=== PATIENT | male | born 1940 | race Caucasian/White ===

== ENCOUNTER 2021-02-21 23:57 | Emergency (ER) | payer MEDICARE ==
[~2021-02-21] VITALS: Ht 175.3 cm; Wt 95.2 kg
[2021-02-22 00:54] LABS: BASOPHILS ABSOLUTE AUTO 0.04 K/mm3 (0.00-0.23); BASOPHILS PERCENT AUTO 1 % (0-2); EOSINOPHILS ABSOLUTE AUTO 0.22 K/mm3 (0.00-0.68); EOSINOPHILS PERCENT AUTO 3 % (0-6); Hematocrit 43.9 % (37.0-53.0); Hemoglobin 14.2 g/dL (13.5-17.5); IMMATURE GRAN ABSOLUTE AUTO 0.03 K/mm3 (0.00-0.10); IMMATURE GRAN PERCENT AUTO 0 % (0-1); LYMPHOCYTES PERCENT AUTO 26 % (21-46); MONOCYTES PERCENT AUTO 10 % (4-13); Mean Corpuscular HGB 28.6 pg (26.0-34.0); Mean Corpuscular HGB Conc 32.3 g/dL (31.5-36.5); Mean Corpuscular Volume 89 fL (80-100); Mean Platelet Volume 9.1 fL (9.1-12.4); NEUTROPHILS ABSOLUTE AUTO 5.07 K/mm3 (1.96-9.15); NEUTROPHILS PERCENT AUTO 61 % (41-73); Platelet Count 239 K/mm3 (150-400); RDW Coefficient Variation 13.4 % (11.7-14.2); RDW Standard Deviation 43.7 fL (35.1-46.3); Red Blood Cell Count 4.96 M/mm3 (4.30-5.90); White Blood Cell Count 8.36 K/mm3 (4.00-11.30)
[2021-02-22 01:12] LABS: Albumin, Blood 2.8 g/dL (3.4-5.0); Albumin/Globulin Ratio 0.6 (0.8-1.8); Bilirubin, Total 0.4 mg/dL (0.1-1.0); Bun/Creatinine Ratio 17.6 (12.0-20.0); Calcium, Blood 8.7 mg/dL (8.5-10.1); Creatinine, Blood 1.25 mg/dL (0.60-1.20); Globulin, Blood 4.4 g/dL (2.2-4.0); Potassium, Blood 4.3 mmol/L (3.5-5.5); Total Protein, Blood 7.2 g/dL (6.4-8.2)
[2021-02-22] MEDS ORDERED: DOXYCYCLINE HY100 M1 PO (03:55)
[2021-02-22] MEDS ORDERED: ATEN50 PO (03:55)
[2021-02-22] MEDS ORDERED: Indomethacin25 MG PO (03:56)
== END 2021-02-22 04:49 | disposition home or self-care (01) ==
LOC: ER 23:57
PROVIDERS: Physician Assistant
DX: L03.115 Cellulitis of right lower limb (principal); Z87.891 Personal history of nicotine dependence
CPT/HCPCS: 80053; 83605; 85025; 99283

== ENCOUNTER 2022-08-17 11:10 | Inpatient (IN) | payer MEDICARE ==
[~2022-08-17] VITALS: Ht 175.3 cm; Wt 93.0 kg
[~2022-08-17 11:10] MED LIST: ATEN50 PO; DOXYCYCLINE HY100 M1 PO; Indomethacin25 MG PO
[2022-08-17 11:52] LABS: BASOPHILS ABSOLUTE AUTO 0.01 K/mm3 (0.00-0.23); BASOPHILS PERCENT AUTO 0 % (0-2); EOSINOPHILS ABSOLUTE AUTO 0.04 K/mm3 (0.00-0.68); EOSINOPHILS PERCENT AUTO 0 % (0-6); Hematocrit 41.9 % (37.0-53.0); Hemoglobin 14.2 g/dL (13.5-17.5); IMMATURE GRAN ABSOLUTE AUTO 0.04 K/mm3 (0.00-0.10); IMMATURE GRAN PERCENT AUTO 0 % (0-1); LYMPHOCYTES ABSOLUTE AUTO 0.84 K/mm3 (0.84-5.20); LYMPHOCYTES PERCENT AUTO 7 % (21-46); MONOCYTES ABSOLUTE AUTO 0.75 K/mm3 (0.16-1.47); MONOCYTES PERCENT AUTO 6 % (4-13); Mean Corpuscular HGB 29.7 pg (26.0-34.0); Mean Corpuscular HGB Conc 33.9 g/dL (31.5-36.5); Mean Corpuscular Volume 88 fL (80-100); Mean Platelet Volume 9.4 fL (9.1-12.4); NEUTROPHILS ABSOLUTE AUTO 10.54 K/mm3 (1.96-9.15); NEUTROPHILS PERCENT AUTO 86 % (41-73); Platelet Count 183 K/mm3 (150-400); RDW Coefficient Variation 13.4 % (11.7-14.2); RDW Standard Deviation 43.6 fL (35.1-46.3); Red Blood Cell Count 4.78 M/mm3 (4.30-5.90); White Blood Cell Count 12.22 K/mm3 (4.00-11.30)
[2022-08-17 12:13] LABS: Albumin, Blood 2.4 g/dL (3.4-5.0); Albumin/Globulin Ratio 0.5 (0.8-1.8); Bilirubin, Total 0.7 mg/dL (0.1-1.0); Bun/Creatinine Ratio 18.5 (12.0-20.0); Calcium, Blood 8.7 mg/dL (8.5-10.1); Creatinine, Blood 1.51 mg/dL (0.60-1.20); Globulin, Blood 4.6 g/dL (2.2-4.0); Potassium, Blood 3.8 mmol/L (3.5-5.5)
[2022-08-17] MEDS ORDERED: CEPH500 PO (12:50)
[2022-08-17] MEDS ORDERED: ASPI81CH PO (12:53)
[2022-08-17] MEDS ORDERED: Doxycycline Mo100 M1 PO (14:57)
--- NOTE | 2022-08-17 18:00 | NUR ---
SHIFT SUMMARY PT A&OX4 AND IN PLEASENT MOOD SINCE ARRIVAL FROM ER. AT BEDSIDE. TOLERATING PO INTAKE. RLE RED SWOLLEN-OUTLINED AND PHOTO ON CHART. UP W/ 1X ASSIST AND FWW DUE TO PAIN. CALL LIGHT W/IN REACH. VSS. TELE IN PLACE. PLAN FOR IV ABX.
[2022-08-18 04:16] LABS: BASOPHILS ABSOLUTE AUTO 0.03 K/mm3 (0.00-0.23); BASOPHILS PERCENT AUTO 0 % (0-2); EOSINOPHILS ABSOLUTE AUTO 0.04 K/mm3 (0.00-0.68); EOSINOPHILS PERCENT AUTO 0 % (0-6); Hematocrit 39.6 % (37.0-53.0); Hemoglobin 13.2 g/dL (13.5-17.5); IMMATURE GRAN ABSOLUTE AUTO 0.04 K/mm3 (0.00-0.10); IMMATURE GRAN PERCENT AUTO 0 % (0-1); LYMPHOCYTES ABSOLUTE AUTO 1.16 K/mm3 (0.84-5.20); LYMPHOCYTES PERCENT AUTO 11 % (21-46); MONOCYTES ABSOLUTE AUTO 1.12 K/mm3 (0.16-1.47); MONOCYTES PERCENT AUTO 10 % (4-13); Mean Corpuscular HGB 29.2 pg (26.0-34.0); Mean Corpuscular HGB Conc 33.3 g/dL (31.5-36.5); Mean Corpuscular Volume 88 fL (80-100); NEUTROPHILS ABSOLUTE AUTO 8.67 K/mm3 (1.96-9.15); NEUTROPHILS PERCENT AUTO 78 % (41-73); Platelet Count 181 K/mm3 (150-400); RDW Coefficient Variation 13.3 % (11.7-14.2); RDW Standard Deviation 43.2 fL (35.1-46.3); Red Blood Cell Count 4.52 M/mm3 (4.30-5.90); White Blood Cell Count 11.06 K/mm3 (4.00-11.30)
--- NOTE | 2022-08-18 04:27 | NUR ---
SHIFT SUMMARY NO OVERNIGHT EVENTS. PT RLE RED, SWOLLEN, WARM, INTACT. REDNESS OUTLINED BY PREVIOUS SHIFT. PT STATES FOOT IS VERY TENDER TO TOUCH AND PAINFUL. ADMINISTERED X1 PRN FENTANYL AND TYLENOL. APPLIED ICE PACKS. LEGS ELEVATED. PT BP SLIGHTLY ELEVATED. AMBULATING SBA FWW TO BATHROOM. CONINUES IV ABX. PT INQUIRING ABOUT COSTS OF HOSPITAL STAY, PLACED CARE MANAGMENT ORDER FOR FINANCIAL ASSISTANCE. PT ABLE TO MAKE NEEDS KNOWN, CALL LIGHT IN REACH.
[2022-08-18 04:41] LABS: Albumin, Blood 2.1 g/dL (3.4-5.0); Albumin/Globulin Ratio 0.5 (0.8-1.8); Bilirubin, Total 0.6 mg/dL (0.1-1.0); Bun/Creatinine Ratio 16.3 (12.0-20.0); Calcium, Blood 8.3 mg/dL (8.5-10.1); Creatinine, Blood 1.29 mg/dL (0.60-1.20); Potassium, Blood 3.6 mmol/L (3.5-5.5); Total Protein, Blood 6.1 g/dL (6.4-8.2)
--- NOTE | 2022-08-18 17:17 | NUR ---
SHIFT SUMMARY NO ACUTE CHANGES DURING SHIFT. PT ALERT AND ORIENTED, CALLS APPROPRIATELY. RLE REMAINS SWOLLEN, RED, ELEVATED WHILE IN BED. IV LASIX STARTED TODAY. PT REMAINS ON RA. PT SBA WITH FWW TO BATHROOM. CONTINUE IV ABX. ATTEMPTED TO APPLY COMPRESSION STOCKING TO RLE TODAY, PT DID NOT TOLERATE, DR REA NOTIFIED. PRN PAIN MEDICATION ADMINISTERED X 2 TODAY, EFFECTIVE. WILL CONTINUE TO MONITOR. CALL LIGHT WITHIN REACH.
--- NOTE | 2022-08-19 03:46 | NUR ---
SHIFT SUMMARY NOC PT A/O X 4. NO ACUTE CHANGES TO REPORT. PT HAD C/O OF PAIN IN RLE WHICH IS STILL SWOLLEN, RED, AND IS ELEVATED ON PILLOW. PT WAS MEDICATED PER EMAR FOR PAIN X 2. PT ON TELE RUNNING SINUS DENIS @ 55 BPM. PT PLEASANT AND COOPERATIVE WITH CARE. PT IS CURRENTLY RESTING WITH BED IN LOWEST POSITION, AND CALL LIGHTE WITHIN REACH. TM.
[2022-08-19 05:18] LABS: BASOPHILS ABSOLUTE AUTO 0.02 K/mm3 (0.00-0.23); BASOPHILS PERCENT AUTO 0 % (0-2); EOSINOPHILS ABSOLUTE AUTO 0.06 K/mm3 (0.00-0.68); EOSINOPHILS PERCENT AUTO 1 % (0-6); Hematocrit 38.6 % (37.0-53.0); IMMATURE GRAN ABSOLUTE AUTO 0.05 K/mm3 (0.00-0.10); IMMATURE GRAN PERCENT AUTO 1 % (0-1); LYMPHOCYTES ABSOLUTE AUTO 1.44 K/mm3 (0.84-5.20); LYMPHOCYTES PERCENT AUTO 13 % (21-46); MONOCYTES PERCENT AUTO 8 % (4-13); Mean Corpuscular HGB 29.2 pg (26.0-34.0); Mean Corpuscular HGB Conc 33.7 g/dL (31.5-36.5); Mean Corpuscular Volume 87 fL (80-100); Mean Platelet Volume 9.1 fL (9.1-12.4); NEUTROPHILS ABSOLUTE AUTO 8.62 K/mm3 (1.96-9.15); NEUTROPHILS PERCENT AUTO 78 % (41-73); Platelet Count 203 K/mm3 (150-400); RDW Coefficient Variation 13.4 % (11.7-14.2); RDW Standard Deviation 42.3 fL (35.1-46.3); Red Blood Cell Count 4.45 M/mm3 (4.30-5.90); White Blood Cell Count 11.09 K/mm3 (4.00-11.30)
[2022-08-19 05:47] LABS: Bun/Creatinine Ratio 16.4 (12.0-20.0); Calcium, Blood 8.5 mg/dL (8.5-10.1); Creatinine, Blood 1.34 mg/dL (0.60-1.20); Potassium, Blood 3.3 mmol/L (3.5-5.5)
--- NOTE | 2022-08-19 18:30 | NUR ---
SHIFT SUMMARY NO ACUTE CHANGES DURING SHIFT. PT ALERT AND ORIENTED, CALLS APPROPRIATELY. PT REMAINS ON RA. PT SBA WITH FWW TO BATHROOM. DECREASE IN SWELLING NOTED TO RLE. PT MEDICATED X 2 WITH PRN MEDICATIONS FOR PAIN TODAY, EFFECTIVE. CONTINUE IV ABX. WILL CONTINUE TO MONITOR. CALL LIGHT WITHIN REACH.
[2022-08-20 05:06] LABS: BASOPHILS ABSOLUTE AUTO 0.03 K/mm3 (0.00-0.23); BASOPHILS PERCENT AUTO 0 % (0-2); EOSINOPHILS PERCENT AUTO 1 % (0-6); Hematocrit 38.4 % (37.0-53.0); IMMATURE GRAN ABSOLUTE AUTO 0.07 K/mm3 (0.00-0.10); IMMATURE GRAN PERCENT AUTO 1 % (0-1); LYMPHOCYTES ABSOLUTE AUTO 1.59 K/mm3 (0.84-5.20); LYMPHOCYTES PERCENT AUTO 16 % (21-46); MONOCYTES ABSOLUTE AUTO 0.85 K/mm3 (0.16-1.47); MONOCYTES PERCENT AUTO 8 % (4-13); Mean Corpuscular HGB 29.2 pg (26.0-34.0); Mean Corpuscular HGB Conc 33.9 g/dL (31.5-36.5); Mean Corpuscular Volume 86 fL (80-100); Mean Platelet Volume 8.8 fL (9.1-12.4); NEUTROPHILS ABSOLUTE AUTO 7.53 K/mm3 (1.96-9.15); NEUTROPHILS PERCENT AUTO 74 % (41-73); Platelet Count 224 K/mm3 (150-400); RDW Coefficient Variation 13.3 % (11.7-14.2); RDW Standard Deviation 41.7 fL (35.1-46.3); Red Blood Cell Count 4.45 M/mm3 (4.30-5.90); White Blood Cell Count 10.17 K/mm3 (4.00-11.30)
[2022-08-20 05:34] LABS: Bun/Creatinine Ratio 19.8 (12.0-20.0); Calcium, Blood 8.5 mg/dL (8.5-10.1); Creatinine, Blood 1.26 mg/dL (0.60-1.20); Potassium, Blood 3.6 mmol/L (3.5-5.5)
--- NOTE | 2022-08-20 07:15 | NUR ---
LADLE REPAIRMAN SUMMARY: A&Ox4. PLEASANT AND COOPERATIVE WITH CARE. CALLS APPROPRIATELY AND IS ABLE TO COMMUNICATE NEEDS EFFECTIVELY. RLE PAINFUL; ERYTHEMATOUS AND EDEMATOUS WITH AREA OUTLINED IN MARKER. MAY BE SPREADING TO LEFT KNEE; HE REPORTS FEELING LIKE RIGHT KNEE LOCKING UP. ALTERNATING PRN APAP AND FENTANYL. IV LAC LEAKING AND PAINFUL; REMOVED AND NEW 22G PLACED IN RFA. LABS COLLECTED THIS AM; NO CRITICAL VALUES REPORTED AT THIS TIME. WILL REPORT TO ONCOMING RN.
--- NOTE | 2022-08-20 15:03 | NUR ---
RESUMED CARE OF PT AT 1430. CALL LIGHT WITHIN REACH AND BED IN THE LOWEST POSITION.
[2022-08-20 15:29] LABS: Vancomycin, Trough 6.6 ug/mL (5.0-10.0)
--- NOTE | 2022-08-20 17:29 | NUR ---
SHIFT SUMMARY SINCE RESUMING PT'S CARE, NO REMARKABLE EVENTS HAVE OCCURRED. HE IS RESTING IN BED WITH HIS , WATCHING TELEVISION. HE HAS HAD NO C/O N/V/CP. HE HOPES TO GO HOME TOMORROW. HE IS A IP WITH A FWW TRANSFER, PER REPORT. HE DID C/O R LEG PAIN AND MEDICATED PER THE EMAR. WILL REPORT TO ONCOMING NURSE.
[2022-08-21 05:49] LABS: Bun/Creatinine Ratio 20.7 (12.0-20.0); Calcium, Blood 8.5 mg/dL (8.5-10.1); Creatinine, Blood 1.21 mg/dL (0.60-1.20); Potassium, Blood 3.5 mmol/L (3.5-5.5)
--- NOTE | 2022-08-21 07:28 | NUR ---
JOURNALISTS AND OTHER WRITERS SUMMARY: A&Ox4. PLEASANT AND COOPERATIVE WITH CARE. CALLS APPROPRIATELY AND IS ABLE TO COMMUNICATE NEEDS EFFECTIVELY. PAIN IN RLE IMPROVING; PRN APAP q6h ONLY AND HAS SINCE STOPPED FENTANYL. DOING WELL WITH ADDITION OF VANCO. NO ACUTE CONCERNS T/O THE NIGHT. LABS DRAWN THIS AM; NO CRITICAL VALUES REPORTED AT THIS TIME. REPORT TO ONCOMING RN.
[2022-08-21] MEDS ORDERED: SULTRIDS PO (10:57)
[2022-08-21] MEDS ORDERED: VISBIOME 112.51 EACH PO (10:58)
== END 2022-08-21 11:45 | disposition home or self-care (01) | DRG 872 ==
LOC: ER 11:10 → MEDS 13:44
PROVIDERS: Emergency Medicine; Internal Medicine; ADMIT Internal Medicine
DX: A41.9 Sepsis, unspecified organism (principal); L03.115 Cellulitis of right lower limb; N17.9 Acute kidney failure, unspecified; E87.20 Acidosis, unspecified; I12.9 Hypertensive chronic kidney disease with stage 1 through stage 4 chronic kidney disease, or unspecified chronic kidney disease; N18.30 Chronic kidney disease, stage 3 unspecified; R65.20 Severe sepsis without septic shock; E88.09 Other disorders of plasma-protein metabolism, not elsewhere classified; M10.9 Gout, unspecified; Z79.82 Long term (current) use of aspirin; Z79.899 Other long term (current) drug therapy; Z79.2 Long term (current) use of antibiotics; Z87.891 Personal history of nicotine dependence
CPT/HCPCS: 36415; 80048; 80053; 80202; 83605; 83880; 85025; 93971; 96374; 96375; 99285-25; A9270; J0690; J0696; J1650; J1940; J3010; J3370; J7030; J7050